=== PATIENT | male | born 1950 | race Caucasian/White ===

== ENCOUNTER → 2025-05-30 13:35 | Outpatient (BNVA) | payer OTHER, SELFPAY | PROVIDERS: Family Provider Family Medicine; PCP Family Medicine; Visit Provider Family Medicine | DX: Z00.00 Encounter for general adult medical examination without abnormal findings (principal); J30.2 Other seasonal allergic rhinitis; R35.1 Nocturia | CPT/HCPCS: 80053; 80061; 84153; 85025 ==